=== PATIENT | male | born 1955 | race Caucasian/White ===

== ENCOUNTER 2024-08-18 22:58 | Emergency (ER) | payer MEDICARE, OTHER ==
[~2024-08-18] VITALS: Ht 175.3 cm; Wt 102.7 kg
[2024-08-18 23:01] VITALS: TEMP 100
[2024-08-19 00:58] VITALS: BP 125/86; PULSE 80; RESP 18; O2SAT 96
[2024-08-19] MEDS: LIDOCAINE 5% TRANSDERMAL PATCH TD ONE (00:58)
== END 2024-08-19 01:14 | disposition home or self-care (01) ==
LOC: EMS 23:01
DX: M54.89 Other dorsalgia (principal); F20.9 Schizophrenia, unspecified; F31.9 Bipolar disorder, unspecified
CPT/HCPCS: 74176; 99284; Z7502; Z7610

== ENCOUNTER 2024-10-28 11:35 | Emergency (ER) | payer MEDICARE, OTHER ==
[~2024-10-28] VITALS: Ht 175.3 cm; Wt 104.0 kg
[2024-10-28 11:44] VITALS: TEMP 98.9
[2024-10-28] MEDS: ACETAMINOPHEN 500 MG TABLET PO ONE (14:32)
[2024-10-28] MEDS: methocarbamoL 500 MG TABLET PO ONE (14:32)
[2024-10-28] MEDS: KETOROLAC TROMETHAMINE 60 MG/2 ML VIAL IM ONE (14:32)
[2024-10-28 14:41] LABS: BASOPHILS % (AUTO) 0.3 % (0.0-2.0); EOSINOPHILS % (AUTO) 0.2 % (1.0-6.0); HEMATOCRIT 38.4 % (41-53); HEMOGLOBIN 12.6 g/dL (13.5-17.5); LYMPHOCYTES # (AUTO) 1.4 K/uL (1.0-4.8); MEAN CORPUSCULAR HEMOGLOBIN 27.6 pg (26.0-34.0); MEAN CORPUSCULAR HGB CONC 32.7 G/dL (31.0-37.0); MEAN CORPUSCULAR VOLUME 84 fL (80-100); MONOCYTES # (AUTO) 1.1 K/uL (0.1-1.0); MONOCYTES % (AUTO) 8.2 % (2.0-9.0); NEUTROPHILS # (AUTO) 11.2 K/uL (1.8-7.7); NEUTROPHILS % (AUTO) 81.3 % (40.0-70.0); PLATELET COUNT (AUTO) 289 K/uL (150-450); RED BLOOD CELL COUNT(AUTO) 4.56 MIL/uL (4.50-5.90); RED CELL DISTRIBUTION WIDTH 14.6 % (11.5-14.5); WHITE BLOOD COUNT (AUTO) 13.7 K/uL (4.5-11.0)
[2024-10-28 14:48] LABS: ANION GAP 6 mmol/L (8-16); CARBON DIOXIDE 29 mmol/L (22-29); CHLORIDE 105 mmol/L (98-107); CREATININE 1.03 mg/dL (0.60-1.30); GLOMERULAR FILTR. RATE CALC > 60 mL/min (>60); GLUCOSE,RANDOM 103 mg/dL (70-110); SODIUM SERUM 140 mmol/L (136-145); UREA NITROGEN, BLOOD 17 mg/dL (7-18)
[2024-10-28 14:58] LABS: TROPONIN I-HIGH SENSITIVITY 6 ng/L (<76)
[2024-10-28] MEDS ORDERED: ACET-66 PO (15:31)
[2024-10-28] MEDS ORDERED: IBUP-1554 PO (15:31)
[2024-10-28 15:40] VITALS: BP 132/70; PULSE 78; RESP 17; O2SAT 94
== END 2024-10-28 23:02 | disposition home or self-care (01) ==
LOC: EMS 11:35
DX: M79.671 Pain in right foot (principal); M79.672 Pain in left foot; F20.9 Schizophrenia, unspecified; F31.9 Bipolar disorder, unspecified
CPT/HCPCS: 99283; 80048; 84484; 85025; 36415; 96372; J1885; G0480